=== PATIENT | female | born 1995 | race Caucasian/White ===

== ENCOUNTER 2018-08-27 06:51 | Emergency (ER) | payer BC ==
[~2018-08-27] VITALS: Ht 162.6 cm; Wt 73.5 kg
[2018-08-27 06:58] VITALS: Ht 162.6 cm; Wt 73.5 kg
[2018-08-27 08:47] VITALS: BP 121/75
== END 2018-08-27 10:03 | disposition home or self-care (01) ==
LOC: ED 06:51
DX: R10.13 Epigastric pain (principal); R19.7 Diarrhea, unspecified; R50.9 Fever, unspecified; R11.0 Nausea
CPT/HCPCS: Q0162